=== PATIENT | female | born 1980 | race Caucasian/White ===

== ENCOUNTER → 2019-09-03 | Outpatient (CLI) | payer OTHER ==
[2019-09-03 10:18] LABS: BASO % 1 % (0-3); EOS # 0.1 x10^3/uL (0.0-0.7); EOS % 3 % (0-3); HEMATOCRIT 38.5 % (36.0-47.0); HEMOGLOBIN 12.9 g/dL (12.0-15.5); LYMPH # 1.6 x10^3/uL (1.0-4.8); LYMPH % 34 % (24-48); MEAN CORPUSCULAR HEMOGLOBIN 31 pg (25-35); MEAN CORPUSCULAR HGB CONC 34 g/dL (31-37); MEAN CORPUSCULAR VOLUME 92 fL (79-100); MONO # 0.3 x10^3/uL (0.0-1.1); MONO % 7 % (0-9); NEUT # 2.7 x10^3uL (1.8-7.7); NEUT % 56 % (31-73); PLATELET COUNT 205 x10^3/uL (140-400); RED BLOOD COUNT 4.21 x10^6/uL (3.50-5.40); RED CELL DISTRIBUTION WIDTH 13.5 % (11.5-14.5); WHITE BLOOD COUNT 4.8 x10^3/uL (4.0-11.0)
[2019-09-03 10:21] LABS: ALBUMIN 3.6 g/dL (3.4-5.0); ALBUMIN/GLOBULIN RATIO 1.1 (1.0-1.7); ALK PHOS 52 U/L (46-116); ALT (SGPT) 25 U/L (14-59); ANION GAP 9 (6-14); AST (SGOT) 13 U/L (15-37); BLOOD UREA NITROGEN 11 mg/dL (7-20); BUN/CREATININE RATIO 18 (6-20); CALCIUM 8.5 mg/dL (8.5-10.1); CARBON DIOXIDE 26 mmol/L (21-32); CHLORIDE 104 mmol/L (98-107); CREATININE 0.6 mg/dL (0.6-1.0); GFR 112.5; GLUCOSE 95 mg/dL (70-99); POTASSIUM 3.8 mmol/L (3.5-5.1); SODIUM 139 mmol/L (136-145); TOTAL BILIRUBIN 0.5 mg/dL (0.2-1.0)
[2019-09-03 11:40] LABS: C REACTIVE PROTEIN < 0.5 mg/L (0-3.3)
[2019-09-03 14:51] LABS: FREE T4 1.06 ng/dL (0.76-1.46); THYROID STIM HORMONE (TSH) 1.252 uIU/mL (0.358-3.740)
== END ==
LOC: LAB 08:16
PROVIDERS: ATTEND Physician Assistant
DX: R30.0 Dysuria (principal); R10.9 Unspecified abdominal pain; R53.83 Other fatigue
CPT/HCPCS: 36415; 80053; 84439; 84443; 85025; 86140

== ENCOUNTER → 2019-11-30 | Outpatient (CLI) | payer OTHER ==
[2019-11-30 09:57] LABS: BASO # 0.1 x10^3/uL (0.0-0.2); BASO % 1 % (0-3); EOS # 0.2 x10^3/uL (0.0-0.7); EOS % 5 % (0-3); HEMATOCRIT 39.2 % (36.0-47.0); LYMPH # 1.6 x10^3/uL (1.0-4.8); LYMPH % 37 % (24-48); MEAN CORPUSCULAR HEMOGLOBIN 31 pg (25-35); MEAN CORPUSCULAR HGB CONC 33 g/dL (31-37); MEAN CORPUSCULAR VOLUME 92 fL (79-100); MONO # 0.3 x10^3/uL (0.0-1.1); MONO % 8 % (0-9); NEUT # 2.1 x10^3uL (1.8-7.7); NEUT % 48 % (31-73); PLATELET COUNT 199 x10^3/uL (140-400); RED BLOOD COUNT 4.26 x10^6/uL (3.50-5.40); RED CELL DISTRIBUTION WIDTH 13.4 % (11.5-14.5); WHITE BLOOD COUNT 4.3 x10^3/uL (4.0-11.0)
[2019-11-30 10:00] LABS: ALBUMIN 3.9 g/dL (3.4-5.0); ALBUMIN/GLOBULIN RATIO 1.1 (1.0-1.7); ALK PHOS 66 U/L (46-116); ALT (SGPT) 19 U/L (14-59); ANION GAP 10 (6-14); AST (SGOT) 11 U/L (15-37); BLOOD UREA NITROGEN 12 mg/dL (7-20); BUN/CREATININE RATIO 17 (6-20); CALCIUM 8.6 mg/dL (8.5-10.1); CARBON DIOXIDE 25 mmol/L (21-32); CHLORIDE 103 mmol/L (98-107); CREATININE 0.7 mg/dL (0.6-1.0); GFR 94.2; GLUCOSE 92 mg/dL (70-99); MAGNESIUM 1.9 mg/dL (1.8-2.4); POTASSIUM 3.9 mmol/L (3.5-5.1); SODIUM 138 mmol/L (136-145); TOTAL BILIRUBIN 0.6 mg/dL (0.2-1.0); TOTAL PROTEIN 7.4 g/dL (6.4-8.2)
[2019-11-30 10:26] LABS: C REACTIVE PROTEIN < 0.5 mg/L (0-3.3)
== END | disposition home or self-care (01) ==
LOC: LAB 08:53
PROVIDERS: ATTEND Physician Assistant Medical
DX: R42 Dizziness and giddiness (principal)
CPT/HCPCS: 36415; 80053; 83735; 85025; 86140

== ENCOUNTER 2020-05-13 06:48 | Emergency (ER) | payer OTHER ==
[~2020-05-13] VITALS: Ht 157.5 cm; Wt 76.4 kg
[2020-05-13 06:48] VITALS: BP 115/84
--- NOTE | 2020-05-13 07:08 | PHYS DOC ---
General Adult EDM: Chief Complaint: MULTIPLE COMPLAINTS HPI: HPI: 39-year-old female past medical history of anxiety, migraine headaches, scoliosis and history of "childhood syncope," presents the ED with complaints of left lateral ankle pain and "numbness," after pt woke slept in/woke up late for work at 6:10am (that's the time she normally leaves for work). While running out the door at 6:24am, patient was going down a step and reports her left ankle rolled inward, did not feel an immediate pop but had to hobble 10 feet to her car (did not fall/hit head). While sitting in parked car, was experiencing pain in her ankle, then developed "a riley, feeling blood in my head, seeing spots" with associated warmth and the sensation she would pass out. Woke up in her car - unsure duration or LOC (car was not on or moving). Pt drove herself to ed. Was prescribed flexeril by Shakila Paula this past week for scoliosus (unsure degree). Works in [employer]. No known h/o covid. Has not been vaccinated for covid, others vaccines UTD. Denies any tobacco use, recent alcohol, IV drug use or cocaine use. No recent URI, fluid losses with vomiting or diarrhea. [place] well last night. No family history of sudden under the age of 50 or genetic cardiac arrhythmias. LMP 1 wk ago, not sexually active. No preceding cp/soa/palplitations prior to syncope. Last syncopal episode was in teenage years. No recent head injury. No active dizziness. No h/o abx in past 6 months (flouroquinolones). On no control. No recent surgery/trauma/immbolizations in last 3 weeks. Review of Systems: Review of Systems: Constitutional: Denies fever or chills Eyes: Denies change in visual acuity HENT: Denies nasal congestion or sore throat Respiratory: Denies cough or shortness of breath Cardiovascular: Denies chest pain/pressure/tightness or hemoptysis GI: Denies abdominal pain, nausea, vomiting, bloody stools or diarrhea : Denies dysuria or vaginal bleeding Musculoskeletal: Denies back pain or joint pain or UL leg swelling Integument: Denies rash or diaphoresis Neurologic: Denies headache, neck pain, focal weakness or sensory changes Endocrine: Denies polyuria or polydipsia Lymphatic: Denies swollen glands Psychiatric: Denies depression or anxiety Physical Exam: PE: Constitutional: Well developed, well nourished, no acute distress, non-toxic appearance. HENT: Normocephalic, atraumatic, Eyes: EOMI, conjunctiva normal, no discharge. Neck: Normal range of motion, supple, Cardiovascular: S1/2 present, regular rhythm, no murmurs Lungs & Thorax: Speaking in full sentences, bilateral equal chest rise, no tachypnea or increased work of breathing Abdomen: soft, no tenderness, Skin: Warm, dry, no erythema, no rash. [] Back: No tenderness, no CVA tenderness. [] Extremities: ttp left and right medial malleoli of the left ankle, normal DP and PT pulses of left ankle, no obvious deformity, able to plantarflex and dorsiflex, pain over anterior ankle and lateral left proximal foot, cap refill less than 1 second, no ecchymosis, no pain over left knee or fibular head, pain worsened with eversion, equal calve sizes Neurologic: Alert and oriented X 3, normal motor function, normal sensory function, no focal deficits noted. [] Psychologic: Affect normal, judgement normal, mood normal. [] EKG: EKG: Sinus rhythm at 71 bpm, left axis deviation, normal intervals, T wave inversion in lead III and aVF, no ST elevations or ST depressions, no delta wave, no epsilon wave, no LVH, no dagger Q waves, no QT prolongation, no associated active chest pain Radiology/Procedures: Radiology/Procedures: IMAGING REPORT Signed PATIENT: ANTHONY CASAS ACCOUNT: [id number] : 1980 LOCATION: ER AGE: 39 SEX: F EXAM STATUS: REG ER ORD. PHYSICIAN: SHAKILA ESPINOSA DO REASON: rolled ankle PROCEDURE: ANKLE LEFT 3V EXAM: XR EXAM OF ANKLE_LEFT 3V 05/13/2020 7:25 AM CLINICAL INDICATION: Rolled ankle COMPARISON: None TECHNIQUE: 3 views of the left ankle FINDINGS: No acute fracture. Alignment is normal. Ankle mortise is symmetric and talar dome is intact. There is an os peroneus noted. Small plantar calcaneal enthesophyte. No focal soft tissue abnormality. IMPRESSION: No acute osseous abnormality. Electronically signed by: Karli Evans MD (05/13/2020 7:30 AM) [id number] DICTATED AND SIGNED BY: KARLI EVANS MD DATE: 05/13/20 0729 CC: SHAKILA MAE PA; SHAKILA ESPINOSA DO ~MTH0 0 Heart Score: C/O Chest Pain: No Risk Factors: Risk Factors: DM, Current or recent (<one month) smoker, HTN, HLP, family history of CAD, obesity. Risk Scores: Score 0 - 3: 2.5% MACE over next 6 weeks - Discharge Home Score 4 - 6: 20.3% MACE over next 6 weeks - Admit for Clinical Observation Score 7 - 10: 72.7% MACE over next 6 weeks - Early Invasive Strategies Course & Med Decision Making: Course & Med Decision Making Pertinent Labs and Imaging studies reviewed. (See chart for details) Concern for neurally mediated syncope in the setting of pain and anxiety after running late for work. Educated on her ekg-to have pmd repeat give TWIs. FH - grandmother with ACS/CHF. Concern for left lateral ankle sprain-is able to bear weight. Crutches/splint offered, brace given. ALEENA nolasco instructions and recommend otc analgesia - has meloxicam (takes for migraines) and flexeril at home. Will discharge home with strict ED return precautions were given for severe pain, neurologic deficits, recurrent syncope, chest pain, dyspnea, or repeat injury of left ankle. Encouraged urgent outpatient follow-up with PMD and orthopedic surgery if needed/pain should persist more than 2 weeks. Life- threatening processes were considered but are low suspicion at this time, given history, physical exam and ED workup. Pt was educated on all prescription medications and adverse effects. All patient's questions were answered and pt was stable at time of discharge. Life/limb-threatening differential includes but is not limited to, trauma (fracture, dislocation, laceration, compartment syndrome, tendon or ligament injury), cardiac arrhythmia/ACS/PE/AAD, neurovascular injury or deficit, infection (osteomyelitis, abscess, cellulitis, septic arthritis, necrotizing fasciitis), deep vein thrombosis, renal/cardiac/liver disease, medication adverse effect, lymphedema/anasarca, vascular insufficiency or malignancy, I spoken with the patient and her caregivers. I explained the patient's condition, diagnoses and treatment plan based on the information available to me at this time. I have answered the patient and her caregiver's questions and addressed any concerns. The patient and her caregivers have a good understanding of patient's diagnosis, condition and treatment plan as can be expected at this point. Vital signs have been stable. Patient's condition is stable and appropriate for discharge from the emergency department. Patient will pursue further outpatient evaluation with primary care physician or other designated or consulting physician as outlined in the discharge instructions. The patient and/or caregivers are agreeable to this plan of care and follow-up instructions have been explained in detail. The patient and/or caregivers have received these instructions in written form and have expressed an understanding of the discharge instructions. The patient and/or caregivers are aware that any significant change of condition or worsening of symptoms should prompt immediate return to this or the closest emergency department or call to [phone] Young Disclaimer: Hannah Disclaimer: This electronic medical record was generated, in whole or in part, using a voice recognition dictation system. Departure Departure: Impression: Primary Impression: Inversion sprain of left ankle Additional Impression: Syncope with normal neurologic examination Disposition: 01 DC HOME SELF CARE/HOMELESS Condition: STABLE Referrals: SHAKILA MAE (PCP) on Saturday05/16/20 Patient Instructions: Ankle Sprain, Cast or Splint Care, Crutch Use Additional Instructions: FOLLOW UP WITH ORTHOPEDICS: [facility] [address] [place] [address], [address] [address] EMERGENCY DEPARTMENT GENERAL DISCHARGE INSTRUCTIONS Thank you for coming to [facility] (ED) today and trusting us with you care. We trust that you had a positivie experience in our Emergency Department. If you wish to speak to the department management, you may call the director at [phone]. YOUR FOLLOW UP INSTRUCTIONS ARE FOLLOWS: 1. Do you have a private Doctor? If you do not have a private doctor, please ask for a resource list of physicians or clinics that may be able to assist you with follow up care. 2. The Emergency Physician has interpreted your x-rays. The X-Ray specialist will also review them. If there is a change in the findings, you will be notified in 48 hours when at all possible. 3. A lab test or culture has been done, your results will be reviewed and you will be notified if you need a change in treatment. ADDITIONAL INSTRUCTIONS AND INFORMATION: 1. Your care today has been supervised by a physician who is specially trained in emergency care. Many problems require more than one evaluation for a complete diagnosis and treatment. We recommend that you schedule your follow up appointment as recommended to ensure complete treatment of you illness or injury. If you are unable to obtain follow up care and continue to have a problem, or if your condition worsens, we recommend that you return to the ED. 2. We are not able to safely determine your condition over the phone nor are we able to give sound medical advice over the phone. For these safety reasons, if you call for medical advice we will ask you to come to the ED for further evaluation. 3. If you have any questions regarding these discharge instructions please call the ED at [phone]. SAFETY INFORMATION: In the interest of safety, wellness, and injury prevention; we encourage you to wear your sealbelt, if you smoke; quite smoking, and we encourage family to use a protective helmet for bicycling and other sporting events that present an increased risk for head injury. IF YOUR SYMPTOMS WORSEN OR NEW SYMPTOMS DEVELOP, OR YOU HAVE CONCERNS ABOUT YOUR CONDITION; OR IF YOUR CONDITION WORSENS WHILE YOU ARE WAITING FOR YOUR FOLLOW UP APPOINTMENT; EITHER CONTACT YOUR PRIMARY CARE DOCTOR, THE PHYSICIAN WHOSE NAME AND NUMBER YOU WERE GIVEN, OR RETURN TO THE ED IMMEDIATELY. SHAKILA PACHECO DO May 13, 2020 07:08
--- NOTE | 2020-05-13 07:32 | RAD ---
EXAM: XR EXAM OF ANKLE_LEFT 3V 05/13/2020 7:25 AM CLINICAL INDICATION: Rolled ankle COMPARISON: None TECHNIQUE: 3 views of the left ankle FINDINGS: No acute fracture. Alignment is normal. Ankle mortise is symmetric and talar dome is intac t. There is an os peroneus noted. Small plantar calcaneal enthesophyte. No focal soft tissue abnormal ity. IMPRESSION: No acute osseous abnormality. Electronically signed by: Karli Evans MD (05/13/2020 7:30 AM) [id number]
[2020-05-13] MEDS ORDERED: IBUPROFEN 600 MG TABLET. PO ONE (07:45)
--- NOTE | 2020-05-13 10:59 | EKG ---
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
== END 2020-05-13 08:07 | disposition home or self-care (01) ==
LOC: ER 06:48
DX: S93.402A Sprain of unspecified ligament of left ankle, initial encounter (principal); R55 Syncope and collapse; X50.9XXA Other and unspecified overexertion or strenuous movements or postures, initial encounter; Y93.89 Activity, other specified; Y92.89 Other specified places as the place of occurrence of the external cause; Y99.8 Other external cause status
CPT/HCPCS: 29515; 73610; 93005; 99283

== ENCOUNTER → 2020-11-29 | Outpatient (CLI) | payer OTHER | LOC: LAB 09:34 | PROVIDERS: ATTEND Physician Assistant Medical | DX: R05 Cough (principal); Z20.822 Contact with and (suspected) exposure to COVID-19 | CPT/HCPCS: U0003 ==

== ENCOUNTER → 2021-01-18 | Outpatient (CLI) | payer OTHER ==
--- NOTE | 2021-01-18 11:38 | RAD ---
EXAM: Lumbar spine, 5 views; scoliosis series, 2 views. HISTORY: Pain. COMPARISON: None. FINDINGS: 5 views of the lumbar spine and frontal views of the thoracic and lumbar spine are obtained . There is S-shaped thoracolumbar scoliosis. There is 8 degrees rotatory levoscoliosis centered at T4 and 21 degrees rotatory dextroscoliosis centered at L1. There are hypoplastic T12 ribs, a normal maxine iant. No segmentation anomaly is seen. There is no listhesis. The vertebral bodies are normal in heig ht. The disc spaces are preserved. IMPRESSION: 1. S-shaped rotatory thoracolumbar scoliosis, described above. 2. No acute osseous finding. Electronically signed by: Kitty Shipley MD (01/18/2021 11:36 AM) [id number]
--- NOTE | 2021-01-18 11:38 | RAD ---
EXAM: Left knee, 3 views. HISTORY: Pain. COMPARISON: None. FINDINGS: 3 views of the left knee are obtained. There is no fracture, dislocation or subluxation. Th ere is no joint effusion. IMPRESSION: No acute osseous finding. Electronically signed by: Kitty Shipley MD (01/18/2021 11:36 AM) [id number]
== END ==
LOC: RAD 10:53
PROVIDERS: ATTEND Physician Assistant Medical
DX: M41.85 Other forms of scoliosis, thoracolumbar region (principal); M25.562 Pain in left knee; M54.50 Low back pain, unspecified
CPT/HCPCS: 72081; 72110; 73562

== ENCOUNTER → 2021-01-30 | Outpatient (CLI) | payer OTHER | LOC: LAB 09:42 | PROVIDERS: ATTEND Internal Medicine Pulmonary Disease | DX: U07.1 COVID-19 (principal) | CPT/HCPCS: U0003 ==

== ENCOUNTER → 2021-06-07 | Outpatient (CLI) | payer OTHER ==
[2021-06-07 13:18] LABS: BASO % 1 % (0-3); EOS # 0.1 x10^3/uL (0.0-0.7); EOS % 2 % (0-3); HEMATOCRIT 39.2 % (36.0-47.0); HEMOGLOBIN 13.3 g/dL (12.0-15.5); LYMPH # 2.1 x10^3/uL (1.0-4.8); LYMPH % 46 % (24-48); MEAN CORPUSCULAR HEMOGLOBIN 31 pg (25-35); MEAN CORPUSCULAR HGB CONC 34 g/dL (31-37); MEAN CORPUSCULAR VOLUME 91 fL (79-100); MONO # 0.3 x10^3/uL (0.0-1.1); MONO % 8 % (0-9); NEUT # 1.9 x10^3uL (1.8-7.7); NEUT % 43 % (31-73); PLATELET COUNT 219 x10^3/uL (140-400); RED CELL DISTRIBUTION WIDTH 12.9 % (11.5-14.5); WHITE BLOOD COUNT 4.5 x10^3/uL (4.0-11.0)
[2021-06-07 13:25] LABS: ALBUMIN 3.8 g/dL (3.4-5.0); ALBUMIN/GLOBULIN RATIO 1.1 (1.0-1.7); CALCIUM 9.1 mg/dL (8.5-10.1); CREATININE 0.7 mg/dL (0.6-1.0); GFR 93.2; POTASSIUM 4.3 mmol/L (3.5-5.1); TOTAL BILIRUBIN 0.5 mg/dL (0.2-1.0); TOTAL PROTEIN 7.2 g/dL (6.4-8.2)
[2021-06-07 13:31] LABS: CLARITY,URINE CLEAR; COLOR,URINE YELLOW; GLUCOSE,URINE NEG (NEG); NITRITE,URINE NEG (NEG); UROBILINOGEN,URINE 0.2 mg/dL (0.2 mg/dL)
[2021-06-07 13:32] LABS: BACTERIA,URINE FEW /HPF (0-FEW); SQUAMOUS EPITHELIAL CELL,UR FEW /LPF
[2021-06-08 19:15] LABS: CHOLESTEROL/HDL RATIO 3.3; FREE T4 1.14 ng/dL (0.76-1.46); THYROID STIM HORMONE (TSH) 0.903 uIU/mL (0.358-3.740)
== END ==
LOC: LAB 12:00
PROVIDERS: ATTEND Physician Assistant Medical
DX: Z00.00 Encounter for general adult medical examination without abnormal findings (principal); G43.909 Migraine, unspecified, not intractable, without status migrainosus; R61 Generalized hyperhidrosis; Z82.49 Family history of ischemic heart disease and other diseases of the circulatory system
CPT/HCPCS: 36415; 80053; 80061; 81001; 82306; 84439; 84443; 85025